=== PATIENT | male | born 1980 | race Caucasian/White ===

== ENCOUNTER 2016-05-22 09:49 | Emergency (ER) | payer OTHER ==
[2016-05-22 10:32] VITALS: BP 144/76
--- NOTE | 2016-05-22 10:39 | RAD ---
Indication: Right rib injury. The views of the right ribs demonstrates no fracture. IMPRESSION: No fracture of the right ribs is noted.
--- NOTE | 2016-05-22 11:17 | UC ---
Truncal Trauma HPI - HPI Summary HPI Summary: 36 year old male with complaints of right medial rib pain x 4 days. States he was "horsing around" with is older children and fell to ground with is son. He landed on his son with right ribs and they have been hurting ever since. Pain with sitting up , lying back, cough and poking at the tender area. Denies bruise. Denies chest pian, Denies difficulty breathing. - History Of Current Complaint Chief Complaint: UCUpperExtremity Stated Complaint: RIGHT RIB INJURY Time Seen by Provider: 05/22/16 11:08 Hx Obtained From: Patient Onset/Duration: Sudden Onset, Lasting Days - 4, Still Present Onset Of Pain: Immediate Severity Initially: Moderate Severity Currently: Mild - until moving and then moderate Pain Scale Used: 0-10 Numeric - 10 with movement Mechanism Of Injury: Blunt Trauma, Fall From A Standing Position Aggravating Factor(s): Movement Alleviating factor(s): Rest Associated Signs And Symptoms: Negative: SOB, Cough, Hematuria, Abdominal Pain, Fever, Nausea, Vomiting - Allergies/Home Medications Allergies/Adverse Reactions: Allergies Allergy/AdvReac Type Severity Reaction Status Date / Time Penicillins Allergy Anaphylatic Verified 05/22/16 10:11 Shock Sertraline [From Zoloft] Allergy Hives Verified 05/22/16 10:11 Home Medications: Home Medications Canagliflozin (NF) [Invokana (NF)] 300 mg PO DAILY 05/22/16 [History Confirmed 05/22/16] Glimepiride (NF) 4 mg PO BID 05/22/16 [History Confirmed 05/22/16] Ibuprofen [Advil] 800 mg PO DAILY PRN 05/22/16 [History Confirmed 05/22/16] Insulin GLARGINE(*) [Lantus(*)] 50 units SUBCUT Q24H 05/22/16 [History Confirmed 05/22/16] Ranitidine TAB (NF) [Zantac TAB (NF)] 150 mg PO BID 05/22/16 [History Confirmed 05/22/16] Simvastatin TAB(NF) [Zocor(NF)] 20 mg PO DAILY 05/22/16 [History Confirmed 05/22] Venlafaxine EXT RELEASE CAP* [Effexor Xr CAP*] 150 mg PO DAILY 05/22/16 [ History Confirmed 05/22/16] PMH/Surg Hx/FS Hx/Imm Hx Previously Healthy: Yes Endocrine History Of: Reports: Diabetes Cardiovascular History Of: Denies: Cardiac Disorders Respiratory History Of: Denies: Asthma - Surgical History Surgical History: Yes Surgery Procedure, Year, and Place: dental extraction - Family History Known Family History: Negative: Hypertension, Diabetes - Social History Occupation: Employed Full-time Lives: With Family Alcohol Use: None Substance Use Type: None Smoking Status (MU): Heavy Every Day Tobacco Smoker Type: Cigarettes Amount Used/How Often: 1 pack daily Cessation Counseling: Patient Advised to Stop - he is not interested in quiting Review of Systems Constitutional: Negative Skin: Negative Eyes: Negative ENT: Negative Respiratory: Negative Cardiovascular: Other - right rib pain Gastrointestinal: Negative Genitourinary: Negative Motor: Decreased ROM - due to acute pain of ribs Neurovascular: Negative Musculoskeletal: Arthralgia - right ribs Neurological: Negative Psychological: Negative All Other Systems Reviewed And Are Negative: Yes Physical Exam Triage Information Reviewed: Yes Appearance: Well-Nourished, Ill-Appearing - mildly, Pain Distress - mild - he is holding his lateral right ribs with left hand. able to walk and get up out of exam room chair without difficulty Vital Signs: Initial Vital Signs Temp 96.4 F 05/22/16 10:15 Pulse 87 05/22/16 10:15 Resp 16 05/22/16 10:15 BP 144/76 05/22/16 10:15 Pulse Ox 98 05/22/16 10:15 Vital Signs Reviewed: Yes Eyes: Positive: Conjunctiva Clear. Negative: Discharge ENT: Positive: Hearing grossly normal. Negative: Nasal congestion Neck: Positive: Supple, Nontender - no mid line cervical tenderness, No Lymphadenopathy Respiratory: Positive: Chest non-tender, Lungs clear, Normal breath sounds Cardiovascular: Positive: RRR, No Murmur Abdomen Description: Positive: Nontender, No Organomegaly, Soft. Negative: CVA Tenderness (R), CVA Tenderness (L) Musculoskeletal: Positive: Strength Intact - all 4 extremities, ROM Intact, No Edema - right ribs without redness, swelling or bruising. NO obvious defomity. Reproducable pain right lateral ribs 6 - 8 Neurological: Positive: Alert, Muscle Tone Normal Psychological: Positive: Age Appropriate Behavior - pleasant and cooperative Skin: Negative: rashes, breakdown Truncal Trauma Course/Dx - Course Course Of Treatment: xray of right ribs = no fracture - Differential Dx/Diagnosis Differential Diagnosis/HQI/PQRI: Chest Wall Contusion, Rib Fracture Provider Diagnoses: right rib contusion Discharge - Discharge Plan Condition: Stable Disposition: HOME Prescriptions: Ibuprofen TAB* [Motrin TAB* 600 MG] 600 mg PO Q8H #20 tab Patient Education Materials: Rib Contusion (ED), Ibuprofen (By mouth) Referrals: RAMA John [Primary Care Provider] - 2 Weeks
== END 2016-05-22 11:39 | disposition home or self-care (01) ==
LOC: UCCORT 09:49
DX: S30.1XXA Contusion of abdominal wall, initial encounter (principal); E11.9 Type 2 diabetes mellitus without complications; F17.210 Nicotine dependence, cigarettes, uncomplicated; W19.XXXA Unspecified fall, initial encounter; Y93.83 Activity, rough housing and horseplay; Y92.9 Unspecified place or not applicable; Z79.4 Long term (current) use of insulin; Z88.0 Allergy status to penicillin; Z88.8 Allergy status to other drugs, medicaments and biological substances
CPT/HCPCS: 99202; G0463

== ENCOUNTER 2016-11-06 12:11 | Emergency (ER) | payer OTHER ==
[2016-11-06 12:21] VITALS: BP 121/77
--- NOTE | 2016-11-06 12:38 | UC ---
Ear Complaint HPI - HPI Summary HPI Summary: 36 y/o PMHX DM type II presents to the urgent care c/o RT ear pain since this morning when he woke up. Pt states pain is 8/10, with mild swelling below the RT ear. Pt denies fever, SOB, cough, chest pain, n/v/d, ear discharge. Pt has not other complains - History of Current Complaint Chief Complaint: UCEar Stated Complaint: RIGHT EAR PAIN Time Seen by Provider: 11/06/16 12:36 Hx Obtained From: Patient Onset/Duration: Sudden Onset, Lasting Hours, Still Present Severity Initially: Mild Severity Currently: Moderate Pain Intensity: 8 Pain Scale Used: 0-10 Numeric Aggravating Factors: Nothing Alleviating Factors: Nothing Associated Signs/Symptoms: Positive: Swelling @ - below his RT ear - Allergies/Home Medications Allergies/Adverse Reactions: Allergies Allergy/AdvReac Type Severity Reaction Status Date / Time Penicillins Allergy Anaphylatic Verified 11/06/16 12:21 Shock Sertraline [From Zoloft] Allergy Hives Verified 11/06/16 12:21 Home Medications: Home Medications Bupropion XL* [Wellbutrin XL *] 150 mg PO DAILY 11/06/16 [History Confirmed ] Insulin Glargine [Basaglar Kwikpen] 46 unit SC BEDTIME 11/06/16 [History Confirmed 11/06/16] Mirtazapine TAB* [Remeron TAB*] 15 mg PO BEDTIME 11/06/16 [History Confirmed ] Pioglitazone HCl [Actos] 30 mg PO DAILY 11/06/16 [History Confirmed 11/06/16] PMH/Surg Hx/FS Hx/Imm Hx Previously Healthy: Yes Endocrine History: Diabetes, Dyslipidemia - Surgical History Surgical History: Yes Surgery Procedure, Year, and Place: dental extraction - Family History Known Family History: Positive: Diabetes Negative: Hypertension - Social History Occupation: Employed Full-time Lives: With Family Alcohol Use: None Substance Use Type: None Smoking Status (MU): Heavy Every Day Tobacco Smoker Type: Cigarettes Amount Used/How Often: 1 pack daily Review of Systems Constitutional: Negative Skin: Negative Eyes: Negative ENT: Ear Ache - RT ear Respiratory: Negative Cardiovascular: Negative Gastrointestinal: Negative Genitourinary: Negative Motor: Negative Neurovascular: Negative Musculoskeletal: Negative Neurological: Negative Psychological: Negative All Other Systems Reviewed And Are Negative: Yes Physical Exam Triage Information Reviewed: Yes Appearance: Well-Appearing, No Pain Distress, Well-Nourished Vital Signs: Initial Vital Signs Temp 97.2 F 11/06/16 12:18 Pulse 70 11/06/16 12:18 Resp 17 11/06/16 12:18 BP 121/77 11/06/16 12:18 Pulse Ox 99 11/06/16 12:18 Vital Signs Reviewed: Yes Eye Exam: Normal Eyes: Positive: Conjunctiva Clear - PERRLA, EOMI, fundi grossly normal ENT: Positive: Normal ENT inspection, Hearing grossly normal, Pharynx normal, TMs normal - LF earcanal and TM wnl. RT external ear canal with mild cerumen. TM with erythema, and no light relfex.. Negative: Nasal congestion, Nasal drainage Dental Exam: Normal Neck exam: Normal Neck: Positive: Supple, Nontender, Tenderness @ - RT cervical lymph node swollen and tender to palpation. Respiratory Exam: Normal Respiratory: Positive: Chest non-tender, Lungs clear, Normal breath sounds Cardiovascular Exam: Normal Cardiovascular: Positive: RRR, No Murmur, Pulses Normal, Brisk Capillary Refill Abdominal Exam: Normal Abdomen Description: Positive: Nontender, No Organomegaly, Soft. Negative: CVA Tenderness (R), CVA Tenderness (L) Bowel Sounds: Positive: Present Musculoskeletal Exam: Normal Musculoskeletal: Positive: Strength Intact, ROM Intact, No Edema Neurological Exam: Normal Psychological Exam: Normal Skin Exam: Normal Ear Complaint Course/Dx - Course Course Of Treatment: 36 y/o PMHX DM type II presents to the urgent care c/o RT ear pain since this morning when he woke up. Pt states pain is 8/10, with mild swelling below the RT ear. Pt denies fever, SOB, cough, chest pain, n/v/d, ear discharge. Hx obtained. PE abnormal findings: LF ear canal and TM wnl. RT external ear canal with mild cerumen. TM with erythema, and no light relfex. Dx RT otitis Media. Pt PMHX of DM type II, and allergic to Amoxicillin. Pt Rx Z-alma and Ibuprofen 800mg PO after meals for pain. Pt advised if not improvement or worsen to return to the urgent care or f/u with his PCP for further evaluation and treatment. Pt understood and agreed. Left clinic ambulating. - Differential Dx/Diagnosis Differential Diagnosis/HQI/PQRI: Mastoiditis, Otitis Externa, Otitis Media, Pharyngitis Provider Diagnoses: Right Otitis Media Discharge - Discharge Plan Condition: Stable Disposition: HOME Prescriptions: Azithromyxin ALMA (NF) [Z-Alma (Zithromax) 250 mg tabs #6] 2 tab PO .TODAY, THEN 1 DAILY #6 tab Ibuprofen TAB* [Motrin TAB* 800 MG] 800 mg PO Q6H PRN #20 tab PRN Reason: Pain Patient Education Materials: Otitis Media (ED) Referrals: RAMA John [Primary Care Provider] - If Needed Additional Instructions: Please take medications as instructed and finish the full course of treatment to avoid recurrent infection. Take ibuprofen after meals to alleviate pain. If you do not improve or if symptoms worsen after the course of antibiotics, you should either follow up with your PCP or return to the urgent care for further evaluation and treatment.
== END 2016-11-06 13:04 | disposition home or self-care (01) ==
LOC: UCCORT 12:11
DX: H66.91 Otitis media, unspecified, right ear (principal); H61.21 Impacted cerumen, right ear; E11.9 Type 2 diabetes mellitus without complications; Z79.4 Long term (current) use of insulin; E78.5 Hyperlipidemia, unspecified; Z88.0 Allergy status to penicillin; F17.210 Nicotine dependence, cigarettes, uncomplicated
CPT/HCPCS: 99212; G0463

== ENCOUNTER 2017-03-13 16:33 | Emergency (ER) | payer OTHER ==
[2017-03-13 16:44] VITALS: BP 155/93
--- NOTE | 2017-03-13 17:23 | UC ---
UC General HPI - HPI Summary HPI Summary: patient's had unprotected sexual intercourse with a man who knows he is HIV +. 2 days ago, since then they have also had sex. He would like to be put on PEP therapy. - History of Current Complaint Chief Complaint: UCSTDScreening Stated Complaint: PERSONAL Time Seen by Provider: 03/13/17 16:42 Hx Obtained From: Patient Onset/Duration: Sudden Onset Onset Severity: Mild Current Severity: None - Allergy/Home Medications Allergies/Adverse Reactions: Allergies Allergy/AdvReac Type Severity Reaction Status Date / Time Penicillins Allergy Anaphylatic Verified 03/13/17 16:45 Shock Sertraline [From Zoloft] Allergy Hives Verified 03/13/17 16:45 Home Medications: Home Medications Atorvastatin* [Lipitor*] 80 mg PO DAILY 03/13/17 [History Confirmed 03/13/17] Omeprazole [Prilosec] 20 mg PO DAILY 03/13/17 [History Confirmed 03/13/17] PMH/Surg Hx/FS Hx/Imm Hx Previously Healthy: Yes - Surgical History Surgical History: Yes Surgery Procedure, Year, and Place: dental extraction - Family History Known Family History: Positive: Diabetes Negative: Hypertension - Social History Alcohol Use: Rare Substance Use Type: None Smoking Status (MU): Heavy Every Day Tobacco Smoker Type: Cigarettes Amount Used/How Often: 1 pack daily Length of Time of Smoking/Using Tobacco: 29 YRS. Review of Systems Constitutional: Negative Skin: Negative Eyes: Negative ENT: Negative Respiratory: Negative Cardiovascular: Negative Gastrointestinal: Negative Genitourinary: Negative Motor: Negative Neurovascular: Negative Musculoskeletal: Negative Neurological: Negative Psychological: Negative Is Patient Immunocompromised?: No All Other Systems Reviewed And Are Negative: Yes Physical Exam Triage Information Reviewed: Yes Appearance: Well-Appearing, No Pain Distress, Well-Nourished, Other: - upset Vital Signs: Initial Vital Signs Temp 99.3 F 03/13/17 16:39 Pulse 117 03/13/17 16:39 Resp 16 03/13/17 16:39 BP 155/93 03/13/17 16:39 Pulse Ox 98 03/13/17 16:39 Vital Signs Reviewed: Yes Eye Exam: Normal ENT Exam: Normal Dental Exam: Normal Neck exam: Normal Respiratory Exam: Normal Cardiovascular Exam: Normal Abdominal Exam: Normal Bowel Sounds: Positive: Present Musculoskeletal Exam: Normal Neurological Exam: Normal Psychological Exam: Normal Skin Exam: Normal Course/Dx - Course Course Of Treatment: hx obtained, exam performed ,meds reviewed, blood work obtained, PEP prophylaxis started. Advised follow up with PCP when blood work returns. - Differential Dx - Multi-Symptom Provider Diagnoses: HIV exposure Discharge - Discharge Plan Condition: Stable Disposition: HOME Prescriptions: Emtricitabine [Emtriva] 200 mg PO DAILY #28 cap Raltegravir* [Isentress*] 400 mg PO BID #56 tab Tenofovir TAB* [Viread*] 300 mg PO DAILY #28 tab Patient Education Materials: HIV Transmission (ED), Postexposure Prophylaxis ( ED) Referrals: RAMA John [Primary Care Provider] - Additional Instructions: 1. take the medication as prescribed. 2. Blood work will be available by the end of the week. 3. I recommend follow up with your primary doctor for further blood work and medication monitoring
[2017-03-14 11:22] LABS: Hematocrit 48 % (42-52); Hemoglobin 16.4 g/dl (14.0-18.0); Mean Corpuscular HGB Conc 34 g/dl (31-36); Mean Corpuscular Hemoglobin 27 pg (27-31); Mean Corpuscular Volume 79 fL (80-94); Mean Platelet Volume 8 um3 (7.4-10.4); Red Blood Count 6.03 10^6/ul (4.0-5.4); Red Cell Distribution Width 13 % (10.5-15); White Blood Count 8.4 10^3/ul (3.5-10.8)
[2017-03-14 11:23] LABS: Add Diff/Slide Review? Slide Review Added; Comments Flag Yes
[2017-03-14 11:34] LABS: Albumin 4.4 g/dL (3.2-5.2); BUN/Creatinine Ratio 23.9 (8-20); Calcium 9.8 mg/dL (8.6-10.3); EGFR African American 170.7 (>60); EGFR Non-African American 132.8 (>60); Globulin 2.6 g/dL (2-4); Potassium 3.9 mmol/L (3.5-5.0); Total Bilirubin 0.5 mg/dL (0.2-1.0)
--- NOTE | 2017-03-15 07:36 | UC ---
Progress - Progress Note Progress Note: Please notify pt His alk phos was slightly elevated He should follow up with his primary to have this followed up
== END 2017-03-13 17:42 | disposition home or self-care (01) ==
LOC: UCCORT 16:33
DX: Z20.6 Contact with and (suspected) exposure to human immunodeficiency virus [HIV] (principal); Z88.0 Allergy status to penicillin; Z88.8 Allergy status to other drugs, medicaments and biological substances; F17.210 Nicotine dependence, cigarettes, uncomplicated
CPT/HCPCS: 36415; 80053; 85025; 86703; 86706; 86803; 87340; 99212; G0463

== ENCOUNTER 2017-06-07 15:25 | Emergency (ER) | payer OTHER | END 2017-06-07 19:20 | disposition left against medical advice (07) | LOC: UCCORT 15:25 | DX: J02.9 Acute pharyngitis, unspecified (principal); R05 Cough; H92.01 Otalgia, right ear; Z53.21 Procedure and treatment not carried out due to patient leaving prior to being seen by health care provider ==

== ENCOUNTER 2017-07-09 11:03 | Emergency (ER) | payer OTHER ==
[2017-07-09 11:20] VITALS: BP 127/74
--- NOTE | 2017-07-09 11:27 | UC ---
Throat Pain/Nasal James HPI - HPI Summary HPI Summary: nasal congestion / cough x 3 days + sore throat, right ear pain , no fever, no chills - History of Current Complaint Chief Complaint: UCRespiratory Stated Complaint: COUGH,CONGESTION Time Seen by Provider: 07/09/17 11:19 Hx Obtained From: Patient Onset/Duration: Gradual Onset, Lasting Days - 3, Still Present Severity: Moderate Pain Intensity: 7 Cough: Nonproductive Associated Signs & Symptoms: Positive: Nasal Discharge. Negative: Dysphagia, FB Sensation, Drooling, Wheezing, Hoarseness, Sinus Discomfort, Fever, Vomiting , Rash - Allergies/Home Medications Allergies/Adverse Reactions: Allergies Allergy/AdvReac Type Severity Reaction Status Date / Time Penicillins Allergy Anaphylatic Verified 07/09/17 11:15 Shock sertraline [From Zoloft] Allergy Hives Verified 07/09/17 11:15 Home Medications: Home Medications Atorvastatin* [Lipitor*] 80 mg PO DAILY 07/09/17 [History Confirmed 07/09/17] Fexofenadine (NF) [Aparna 180 (NF)] 180 mg PO DAILY 07/09/17 [History Confirmed 07/09/17] Pregabalin CAP(*) [Lyrica CAP(*)] 75 mg PO TID 07/09/17 [History Confirmed 07/09] lamoTRIgine TAB(*) [LaMICtal TAB(*)] 25 mg PO BID 07/09/17 [History Confirmed ] PMH/Surg Hx/FS Hx/Imm Hx GI/ History: Gastroesophageal Reflux Psychological History: Anxiety - Surgical History Surgical History: Yes Surgery Procedure, Year, and Place: dental extraction - Family History Known Family History: Positive: Diabetes Negative: Hypertension - Social History Alcohol Use: Rare Substance Use Type: None Smoking Status (MU): Heavy Every Day Tobacco Smoker Type: Cigarettes Amount Used/How Often: 1 pack daily Length of Time of Smoking/Using Tobacco: 29 YRS. Review of Systems Constitutional: Negative Skin: Negative Eyes: Negative ENT: Sore Throat, Nasal Discharge Respiratory: Cough Cardiovascular: Negative Is Patient Immunocompromised?: No All Other Systems Reviewed And Are Negative: Yes Physical Exam Triage Information Reviewed: Yes Appearance: Well-Appearing, No Pain Distress, Well-Nourished Vital Signs: Initial Vital Signs Temp 98.2 F 07/09/17 11:13 Pulse 84 07/09/17 11:13 Resp 18 07/09/17 11:13 BP 127/74 07/09/17 11:13 Pulse Ox 96 07/09/17 11:13 Vital Signs Reviewed: Yes Eyes: Positive: Conjunctiva Clear ENT: Positive: Normal ENT inspection, Hearing grossly normal, Pharynx normal, Nasal drainage, TMs normal. Negative: Pharyngeal erythema, TM bulging, TM dull , TM red Neck: Positive: Supple, Nontender, No Lymphadenopathy Respiratory: Positive: Chest non-tender, Lungs clear, Normal breath sounds Cardiovascular: Positive: RRR, No Murmur, Pulses Normal Skin Exam: Normal Throat Pain/Nasal Course/Dx - Differential Dx/Diagnosis Provider Diagnoses: uri Discharge - Discharge Plan Condition: Stable Disposition: HOME Patient Education Materials: Upper Respiratory Infection (ED) Referrals: RAMA John [Primary Care Provider] - If Needed
== END 2017-07-09 11:27 | disposition home or self-care (01) ==
LOC: UCCORT 11:03
DX: J06.9 Acute upper respiratory infection, unspecified (principal); Z88.0 Allergy status to penicillin; Z88.8 Allergy status to other drugs, medicaments and biological substances; F17.210 Nicotine dependence, cigarettes, uncomplicated
CPT/HCPCS: 99211; G0463

== ENCOUNTER 2017-07-28 16:03 | Emergency (ER) | payer OTHER ==
[2017-07-28 16:50] VITALS: BP 119/75
--- NOTE | 2017-07-28 16:55 | UC ---
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 He was in an argument and punched the refrigerator. Denies numbness or tingling. - History Of Current Complaint Chief Complaint: UCUpperExtremity Stated Complaint: LEFT HAND SWOLLEN Time Seen by Provider: 07/28/17 16:43 Hx Obtained From: Patient Onset/Duration: Sudden Onset Severity Initially: Severe Severity Currently: Severe Pain Intensity: 10 Pain Scale Used: 0-10 Numeric Character Of Pain: Sharp, Dull, Aching, Throbbing Aggravating Factor(s): Movement, Flexion Alleviating Factor(s): Ice - Allergies/Home Medications Allergies/Adverse Reactions: Allergies Allergy/AdvReac Type Severity Reaction Status Date / Time Penicillins Allergy Anaphylatic Verified 07/09/17 11:15 Shock sertraline [From Zoloft] Allergy Hives Verified 07/09/17 11:15 PMH/Surg Hx/FS Hx/Imm Hx Previously Healthy: Yes Endocrine History: Diabetes, Dyslipidemia GI/ History: Gastroesophageal Reflux Psychological History: Bipolar Disorder - Surgical History Surgical History: Yes Surgery Procedure, Year, and Place: dental extraction - Family History Known Family History: Positive: Diabetes Negative: Hypertension - Social History Lives: With Family Alcohol Use: Rare Substance Use Type: None Smoking Status (MU): Heavy Every Day Tobacco Smoker Type: Cigarettes Amount Used/How Often: 1 pack daily Length of Time of Smoking/Using Tobacco: 29 YRS. Review of Systems Constitutional: Negative Skin: Negative Respiratory: Negative Cardiovascular: Negative Neurovascular: Negative Musculoskeletal: Decreased ROM - Left hand, Edema - LEft hand, Other: - Pain 4th and 5th MCP left Neurological: Negative Psychological: Negative All Other Systems Reviewed And Are Negative: Yes Physical Exam Triage Information Reviewed: Yes Appearance: Well-Appearing, No Pain Distress, Well-Nourished Vital Signs: Initial Vital Signs Temp 98.3 F 07/28/17 16:44 Pulse 98 07/28/17 16:44 Resp 20 07/28/17 16:44 BP 119/75 07/28/17 16:44 Pulse Ox 97 07/28/17 16:44 Vital Signs Reviewed: Yes Neck: Positive: Supple, Nontender Respiratory: Positive: Lungs clear, Normal breath sounds, No respiratory distress Cardiovascular: Positive: RRR, No Murmur, Pulses Normal Musculoskeletal: Positive: ROM Limited @ - Left hand and 4th and 5th fingers due to pain, Edema @ - Left dorsal hand, Other: - Pain left dorsal hand overlying 4th and 5th MCP. Mild volar angular deformity of 5th MCP. Moderate edema and ecchymosis overlying this region Neurological: Positive: Alert, Other: - Sensations intact left hand and all fingers Psychological: Positive: Age Appropriate Behavior Skin: Negative: rashes, significant lesion(s) Hand/Wrist Course/Dx - Course Course Of Treatment: XR: FINDINGS: There is an angulated fracture of the distal diaphysis of the fifth metacarpal. with mild comminution.. There is also transverse, mildly angulated but otherwise. nondisplaced distal fourth metacarpal fracture. There are no other fractures. There is. associated soft tissue swelling. I spoke with Dr. Byrd who advised to splint and have pt f/u with him on Tuesday. - Differential Dx/Diagnosis Provider Diagnoses: Closed displaced fracture of left 5th MCP. Closed non- displaced fracture of left 4th MCP Discharge - Sign-Out/Discharge Documenting (check all that apply): Discharge - Discharge Plan Condition: Stable Disposition: HOME Patient Education Materials: Boxer Fracture (ED) Referrals: RAMA John [Primary Care Provider] - Benny Byrd MD [Medical Doctor] - 08/02/17 Additional Instructions: If you develop a fever, shortness of breath, chest pain, new or worsening symptoms - please call your PCP or go to the ED. 1) Dr. Byrd is in the [place] off on Tuesday - please call his office tomorrow and schedule an appointment for Tuesday. 2) Keep your splint clean, dry, and intact until your appointment - Billing Disposition and Condition Condition: STABLE Disposition: HOME
--- NOTE | 2017-07-28 17:12 | RAD ---
INDICATION: Traumatic fracture left fifth metacarpal COMPARISON: None TECHNIQUE: AP, lateral, and oblique views were obtained. FINDINGS: There is an angulated fracture of the distal diaphysis of the fifth metacarpal with mild comminution.. There is also transverse, mildly angulated but otherwise nondisplaced distal fourth metacarpal fracture. There are no other fractures. There is associated soft tissue swelling. IMPRESSION: FOURTH AND FIFTH METACARPAL FRACTURES DESCRIBED.
== END 2017-07-28 17:39 | disposition home or self-care (01) ==
LOC: UCCORT 16:03
DX: S62.307A Unspecified fracture of fifth metacarpal bone, left hand, initial encounter for closed fracture (principal); S62.305A Unspecified fracture of fourth metacarpal bone, left hand, initial encounter for closed fracture; F17.210 Nicotine dependence, cigarettes, uncomplicated; W22.8XXA Striking against or struck by other objects, initial encounter; Y92.9 Unspecified place or not applicable
CPT/HCPCS: 99211; G0463

== ENCOUNTER 2017-07-31 19:41 | Emergency (ER) | payer OTHER ==
[2017-07-31 19:52] VITALS: BP 134/85
--- NOTE | 2017-07-31 20:10 | UC ---
Hand/Wrist HPI - HPI Summary HPI Summary: PT WAS SEEN ON 07/28/17 AND SPLINTED FOR A FX LEFT HAND. HE RETURNS TODAY FOR A RECHECK. HE NOTES THAT HIS HAND HAS SWOLLEN MORE SINCE THE SPLINT WAS APPLIED AND NOW HIS HAND "FEELS CONSTRICTED". HE ALSO NOTES BRUISING TO HIS FINGER TIPS AND NUMBNESS TO THE TIP OF HIS MIDDLE FINGER ONLY. - History Of Current Complaint Stated Complaint: LEFT HAND RE-CK Time Seen by Provider: 07/31/17 19:51 Hx Obtained From: Patient Onset/Duration: Gradual Onset Pain Intensity: 8 Alleviating Factor(s): Nothing Associated Signs And Symptoms: Positive: Swelling, Bruising - Allergies/Home Medications Allergies/Adverse Reactions: Allergies Allergy/AdvReac Type Severity Reaction Status Date / Time Penicillins Allergy Anaphylatic Verified 07/31/17 19:52 Shock sertraline [From Zoloft] Allergy Hives Verified 07/31/17 19:52 PMH/Surg Hx/FS Hx/Imm Hx - Additional Past Medical History Additional PMH: MOOD DISORDER. FX l HAND 07/28/17 Endocrine History: Diabetes, Dyslipidemia - Surgical History Surgical History: Yes Surgery Procedure, Year, and Place: dental extraction - Family History Known Family History: Positive: Diabetes Negative: Hypertension - Social History Lives: With Family Alcohol Use: Rare Substance Use Type: None Smoking Status (MU): Heavy Every Day Tobacco Smoker Type: Cigarettes Amount Used/How Often: 1 pack daily Length of Time of Smoking/Using Tobacco: 29 YRS. Review of Systems Constitutional: Negative Skin: Negative Eyes: Negative ENT: Negative Respiratory: Negative Cardiovascular: Negative Gastrointestinal: Negative Genitourinary: Negative Motor: Negative Neurovascular: Negative Musculoskeletal: Other: - SWELLING AND BRUISING TO FINGER TIPS LEFT HAND Neurological: Negative Psychological: Negative Is Patient Immunocompromised?: No All Other Systems Reviewed And Are Negative: Yes Physical Exam Triage Information Reviewed: Yes Appearance: Well-Appearing Vital Signs: Initial Vital Signs Temp 98.2 F 07/31/17 19:49 Pulse 102 07/31/17 19:49 Resp 18 07/31/17 19:49 BP 134/85 07/31/17 19:49 Pulse Ox 97 07/31/17 19:49 Vital Signs Reviewed: Yes Eye Exam: Normal ENT: Positive: Normal ENT inspection Neck: Positive: Supple, Nontender, No Lymphadenopathy Respiratory: Positive: Lungs clear, Normal breath sounds Cardiovascular: Positive: RRR, No Murmur Abdomen Description: Positive: Nontender, No Organomegaly, Soft Bowel Sounds: Positive: Present Musculoskeletal: Positive: Other: - LUE: ulnar gutter splint is in place. tips of fingers with purple bruising plus thumb is mildly swollen. gross sensation to each finger tip is intact. cap refill to each finger tip is < 2 seconds. motion to thumb, index and middle fingers are in tact. 4th/5th digits immobile by splint. Procedures - Procedure Summary Procedure Summary: diane wraps removed but splint held in place. pt noted immediate resolution of the constricted feeling and numbness to tip of middle finger resolved. 2 new diane wraps applied. recheck prior to discharge, pt notes felling much more comfortable he has f/u with Dr byrd this tuesday. Hand/Wrist Course/Dx - Course Course Of Treatment: prior visit and xray reviewed. no signs of infection. no compartment syndrom. - Differential Dx/Diagnosis Provider Diagnoses: Recheck fx L hand. Splint adjustment Discharge - Sign-Out/Discharge Documenting (check all that apply): Discharge - Discharge Plan Condition: Stable Disposition: HOME Patient Education Materials: Hand Fracture (ED), Splint Care (ED) Referrals: RAMA John [Primary Care Provider] - If Needed Benny Byrd MD [Medical Doctor] - Additional Instructions: FOLLOW UP DR BYRD THIS TUESDAY SCHEDULED. - Billing Disposition and Condition Condition: STABLE Disposition: HOME
== END 2017-07-31 20:14 | disposition home or self-care (01) ==
LOC: UCCORT 19:41
DX: S62.92XD Unspecified fracture of left hand, subsequent encounter for fracture with routine healing (principal); X58.XXXD Exposure to other specified factors, subsequent encounter; F17.210 Nicotine dependence, cigarettes, uncomplicated; Z88.0 Allergy status to penicillin; Z88.8 Allergy status to other drugs, medicaments and biological substances
CPT/HCPCS: 26600; 99211; G0463

== ENCOUNTER 2017-08-05 08:05 | Day surgery (SDC) | payer OTHER ==
[~2017-08-05 08:05] MED LIST: Buffered Lidocaine 0.9% SYRIN* 5 ML/SYR SYRINGE INTRADERM ONE; Famotidine IV* 10 MG/ML 2 ML (20 mg) IV ONE; Metoclopramide IV* 5 MG/ML 2 ML VIAL IV SLOW PU ONE
[2017-08-05] MEDS ORDERED: Famotidine TAB* 20 MG ONE (08:06)
[2017-08-05] MEDS ORDERED: Clindamycin 900 MG IVPREMIX(* 900 MG/50 ML SDV IV ONE (08:06)
[2017-08-05] MEDS ORDERED: Metoclopramide IV* 5 MG/ML 2 ML VIAL ONE (08:06)
[2017-08-05] MEDS ORDERED: Bupivacaine 0.25% SDV* 30 ML ONE (10:26)
[2017-08-05] MEDS ORDERED: fentaNYL* 50 MCG/ML 2 ML VIAL (100 MCG VIAL) ONE ×2 (10:32→11:19)
[2017-08-05] MEDS ORDERED: HYDROcodone/ACETAMIN 5-325 MG* 1 TAB PO PRN (10:33)
[2017-08-05] MEDS ORDERED: PROCHLORPERAZINE INJ 5 MG/ML 2 ML VIAL IV PRN (10:33)
[2017-08-05] MEDS ORDERED: Naloxone* 0.4 MG/ML 1 ML VIAL IV PRN (10:33)
[2017-08-05] MEDS ORDERED: fentaNYL* 50 MCG/ML 2 ML VIAL (100 MCG VIAL) IV PRN (10:33)
[2017-08-05] MEDS ORDERED: oxyCODONE/Acetamin 5/325 MG* TAB PO PRN (10:33)
[2017-08-05] MEDS ORDERED: Propofol* 10 MG/ML 20 ML BTL IV PUSH ONE (10:37)
[2017-08-05] MEDS ORDERED: Lidocaine 2% PF * 5 ML VIAL ONE (10:37)
[2017-08-05] MEDS ORDERED: Phenylephrine IV* 40 MCG/ML 10 ML SYRINGE ONE (10:53)
[2017-08-05] MEDS ORDERED: Ketorolac INJ* 30 MG/ML 1 ML VIAL ONE (10:56)
[2017-08-05] MEDS ORDERED: EPHEDrine (Pressors)* 50 MG/ML VIAL ONE (11:01)
[2017-08-05] MEDS ORDERED: Ondansetron INJ* 2 MG/ML VIAL ONE (11:25)
[2017-08-05] MEDS ORDERED: HYDROcodone/ACETAMIN 5-325 MG* 1 TAB ONE (12:17)
[2017-08-05 12:27] VITALS: BP 124/80
--- NOTE | 2017-08-05 19:27 | OP ---
DATE OF OPERATION: 08/05/17 - [facility] DATE OF : 78 SURGEON: Benny Byrd MD SEAMLESS HOSIERY KNITTER: BHANU Michel ANESTHESIOLOGIST: Dr. Summers. ANESTHESIA: General. PRE-OP DIAGNOSIS: Left displaced fifth metacarpal neck fracture. POST-OP DIAGNOSIS: Left displaced fifth metacarpal neck fracture. OPERATIVE PROCEDURE: Closed reduction and percutaneous fixation of left fifth metacarpal neck fracture. INDICATIONS: Gagan is 37 years old. He has a displaced and rotated fifth metacarpal neck fracture. We talked about risks and benefits. He wants to proceed. ESTIMATED BLOOD LOSS: 1 mL. COMPLICATIONS: None. FINDINGS: As expected. DESCRIPTION OF PROCEDURE: Gagan seen in the preoperative holding area. The correct side, site, and procedure were identified. We came back to the operating room where a pre-scrub was performed and the arm was prepped and draped in the usual fashion. A time-out was performed. I exsanguinated the arm with the Esmarch and the tourniquet was inflated to 250 mmHg. I made a 4-5 mm incision with 15 blade and bluntly dissected down with a mosquito to the base of the fifth metacarpal. A larger K-wire was used to open up the cortical window on the ulnar aspect at the base of the fifth metacarpal. I then brought in a 5/64th inch K-wire and placed on the T-Handle Beni with the tip in. I placed into my cortical window in the base of the fifth metacarpal. This was advanced in antegrade fashion down to the fracture site. The fracture site was then closed reduced and the wire was advanced past the fracture and tapped into place with the mallet. Fluoroscopic imaging showed excellent alignment of the fracture. The pin was bent and clipped and dressed with Xeroform, 4x4s, sterile Webril and an ulnar-guided splint. Tourniquet was deflated. He was woken up and taken to recovery room in stable condition. [id number]/CPS #: [id number] MTDD
--- NOTE | 2017-08-10 10:42 | RAD ---
CPT II Codes: G9500 INDICATION: Fracture left fifth metacarpal TECHNIQUE: Intraoperative fluoroscopy was provided during percutaneous medullary pin fixation of fractured left fifth metacarpal. FINDINGS: 6 spot films depict placement of a percutaneous fixation pin spanning the medullary cavity of the fractured left fifth metacarpal. Fluoroscopy time: 27 seconds IMPRESSION: As above.
== END 2017-08-05 12:27 | disposition home or self-care (01) ==
LOC: OR 08:05
PROVIDERS: ATTEND Orthopaedic Surgery Hand Surgery
DX: S62.337A Displaced fracture of neck of fifth metacarpal bone, left hand, initial encounter for closed fracture (principal); E11.9 Type 2 diabetes mellitus without complications; Z79.4 Long term (current) use of insulin; E78.5 Hyperlipidemia, unspecified; M19.90 Unspecified osteoarthritis, unspecified site; F17.210 Nicotine dependence, cigarettes, uncomplicated; G47.33 Obstructive sleep apnea (adult) (pediatric); W22.8XXA Striking against or struck by other objects, initial encounter; Y92.9 Unspecified place or not applicable
CPT/HCPCS: 76000; A9270-GY; C1776; J1885; J2405; J2704; J2765; J3010

== ENCOUNTER 2017-09-15 13:15 | Emergency (ER) | payer OTHER ==
--- OUTSIDE RECORDS SUMMARY | 2017-09-15 13:31 | XMS REPORT ---
:1980 External Reference #:[id number] Author Organization [facility] Address [address] [address] Phone [phone] Care Team Providers Name Role Phone Joseph Nascimento RPA Primary Care Physician Unavailable Payers Type Date Identification Numbers Payment Provider Subscriber Commercial Policy Number: [id number] Jaya Hartman Group Number: [id number] [address] PayID: [id number] [place] [address] Problems Date Description Provider Status Onset: 09/06/2017 Mallet finger Benny Byrd MD Active Onset: 09/06/2017 Disp fx of nk of 4th [facility] bone, l hand, Benny Byrd MD Active 7thD Onset: 08/02/2017 Closed fracture of neck of metacarpal Benny Byrd MD Active bone Onset: 12/17/2015 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 Family History Date Family Member(s) Problem(s) Comments General Kidney Disease General Cancer General Diabetes Social History Type Date Description Comments Lives With Occupation Unemployed Occupation discharged from ETOH Use Occasionally consumes alcohol Recreational Drug Use Denies Drug Use Smoking Heavy tobacco smoker (more than 10 cigarettes/day) Exercise Type/Frequency Exercises rarely Allergies, Adverse Reactions, Alerts Date Description Reaction Status Severity Comments 12/17/2015 Penicillin active critical 08/02/2017 Zoloft Hives active Medications Medication Date Status Form Strength Qnty SIG Indications Ordering Provider Cephalexin 09/09/ Active Capsules 500mg 30cap take 1 S62.337D Benny 2017 s every 6 Byrd, hours as MD needed Glimepiride 00// Active Tablets 4mg 2 by mouth Unknown 0000 every day Aparna Allergy / Active Tablets 180mg 1 by mouth Unknown 0000 every day 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/ Active Tablets 150mg 1 by mouth Unknown 0000 twice a day Invokana / Active Tablets 100mg 1 by mouth Unknown 0000 every day before breakfast Basaglar Kwikpen / Active Solution 100Unit/M As Unknown 0000 Pen-Inject L directed Atorvastatin / Active Tablets 80mg 1 by mouth Unknown Calcium 0000 every day Hydrocodone-Aceta 08/16/ Hx Tablets 5-325mg 30tab 1 or 2 Benny minophen 2017 - s tabs by Rochelle 08/31/ ritu AMANDA 2017 every 6-8 hours as needed for pain Hydrocodone-Aceta 08/05/ Hx Tablets 5-325mg 30tab 1 or 2 Benny minophen 2017 - s tabs by Rochelle 08/09/ ritu AMANDA 2018 every 6-8 hours as needed for pain Lantus / Hx Solution 100Unit/M as Unknown 0000 - L directed 2017 Simvastatin / Hx Tablets 20mg 1 by mouth Unknown 0000 - every day 2017 Actos / Hx Tablets 30mg 1 by mouth Unknown 0000 - every day 2017 Cyclobenzaprine / Hx Tablets 10mg one by Unknown HCL 0000 - mouth 2018 times a day as needed spasm Vital Signs Date Vital Result Comment 09/09/2017 Height 71 inches 5'11" Weight 197.00 lb Heart Rate 84 /min Respiratory Rate 17 /min Body Temperature 98.4 F Pain Level 8 BMI (Body Mass Index) 27.5 kg/m2 09/06/2017 Height 71 inches 5'11" Weight 197.00 lb BP Systolic Sitting 118 mmHg BP Diastolic Sitting 68 mmHg Respiratory Rate 16 /min Pain Level 7 BMI (Body Mass Index) 27.5 kg/m2 08/16/2017 Height 71 inches 5'11" Weight 202.00 lb Heart Rate 70 /min BP Systolic Sitting 124 mmHg BP Diastolic Sitting 70 mmHg Respiratory Rate 16 /min Pain Level 8 BMI (Body Mass Index) 28.2 kg/m2 08/02/2017 Height 71 inches 5'11" Weight 210.00 lb Heart Rate 96 /min BP Systolic Sitting 106 mmHg BP Diastolic Sitting 90 mmHg Pain Level 8 left hand pain BMI (Body Mass Index) 29.3 kg/m2 Results Test Date Test Result H/L Range Note Laboratory test finding 08/05/2017 Point of Care Glucose 194 mg/dL High 70 -100 1 1 Bulb Grower: [id number] Procedures Date CPT Code Description Status 09/06/2017 51586 Short Arm Splint Application Completed 08/16/2017 92645 Rad Exam; Hand Comp Completed 08/16/2017 07081 Short Arm Cast Application Completed 08/05/2017 72027 FX Metacarpal Percutaneous Skeletal Fixation Completed 08/05/2017 93845 FX Metacarpal Percutaneous Skeletal Fixation Completed 08/02/2017 20408 Short Arm Splint Application Completed Encounters Type Date Location Provider CPT E/M Dx Office Visit 08/02/2017 [place] [address] S62.337A 8:00a Of [facility] AT [place] S62.337A Office Visit 12/17/2015 1:15p Neurosurgery Services Alan Mclean [address] [id number] [facility] Future Appointment(s):09/13/2017 9:00 am - Benny Byrd MD at [facility] AT Oiijzdvx68/12/2018 11:30 am - Benny Byrd MD at [facility] AT Edjbdaym89/18/2018 - Benny Byrd [id number] Disp fx of nk of 5th [facility] bone, l hand, 7thDNew Medication:Cephalexin 500 mgFollow up:Follow up: in [place] next Tuesday
--- OUTSIDE RECORDS SUMMARY | 2017-09-15 13:31 | XMS REPORT ---
:1980 External Reference #:[id number] Author Organization [facility] Address [address] [address] Phone [phone] Care Team Providers Name Role Phone Joseph Nascimento RPA Primary Care Physician Unavailable Payers Type Date Identification Numbers Payment Provider Subscriber Commercial Policy Number: [id number] Jaya Hartman Group Number: [id number] [address] PayID: [id number] [place] [address] Problems Date Description Provider Status Onset: 08/02/2017 Closed fracture of neck of [...] Form Strength Qnty SIG Indications Ordering Provider Glimepiride / Active Tablets 4mg 2 by mouth Unknown 0000 every day Aparna Allergy / Active Tablets 180mg 1 by mouth Unknown 0000 every day Acid Fruit Vendor / Active Tablets 150mg 1 by mouth Unknown 0000 twice a day Invokana / Active Tablets 100mg 1 by mouth Unknown 0000 every day before breakfast Basaglar Kwikpen 00/00/ Active Solution 100Unit/M As Unknown 0000 Pen-Inject L directed Atorvastatin / Active Tablets 80mg 1 by mouth Unknown Calcium 0000 every day Hydrocodone-Aceta 08/16/ Hx Tablets 5-325mg 30tab 1 or 2 Benny castellon 2018 - s tabs by Rochelle 08/31/ mouth 2018 every 6-8 hours as needed for pain Hydrocodone-Aceta 08/05/ Hx Tablets 5-325mg 30tab 1 or 2 Benny minryne 2018 - s tabs by Rochelle 08/09/ mouth 2017 every 6-8 hours as needed for [...] spasm Vital Signs Date Vital Result Comment 09/06/2017 Height 71 inches 5'11" Weight 197.00 [...] 194 mg/dL High 70 -100 1 1 Manager Practice: [id number] Procedures Date CPT Code Description Status 08/16/2017 74085 Rad Exam; Hand Comp Completed 08/16/2017 30650 Short Arm Cast Application Completed 08/05/2017 14598 FX Metacarpal Percutaneous Skeletal Fixation Completed 08/05/2017 64059 FX Metacarpal Percutaneous Skeletal Fixation Completed 08/02/2017 60381 Short Arm Splint Application Completed Encounters Type Date Location Provider CPT E/M Dx Office Visit 08/02/2017 [place] [address] S62.337A 8:00a Of [facility] AT [place] S62.337A Office Visit 12/17/2015 1:15p Neurosurgery Services Alan Mclean, [address] [id number] Of [facility] [place] Plan of Care Future Appointment(s):10/04/2017 11:30 am - Benny Byrd MD at [facility]
[2017-09-15 13:38] VITALS: BP 124/80
--- NOTE | 2017-09-15 14:39 | UC ---
Respiratory Complaint HPI - HPI Summary HPI Summary: Cough congestion and yellow-green drainage from nose Y for similar symptoms get a similar symptoms patient's felt fatigued. Patient is diabetic orally controlled his blood sugars have been in the 160s 170s has not had any nausea vomiting or abdominal pain does not complain of increased thirst increased hunger increased urination. Patient is a cigarette smoker and is exposed to additional environmental smoke at home - History of Current Complaint Chief Complaint: UCGeneralIllness Stated Complaint: COUGH/CONGESTION/HEADACHE Time Seen by Provider: 09/15/17 13:43 Hx Obtained From: Patient Onset/Duration: Sudden Onset, Lasting Days - 2, Still Present Timing: Constant Pain Intensity: 0 Pain Scale Used: 0-10 Numeric Character: Cough: Productive Aggravating Factors: Deep Breaths, Recumbent Position Associated Signs And Symptoms: Positive: Chills, URI, Nasal Congestion, Sinus Discomfort - Allergies/Home Medications Allergies/Adverse Reactions: Allergies Allergy/AdvReac Type Severity Reaction Status Date / Time Penicillins Allergy Severe Anaphylatic Verified 09/15/17 13:36 Shock sertraline [From Zoloft] Allergy Intermediate Hives Verified 09/15/17 13:36 Home Medications: Home Medications Pioglitazone TAB* [Actos TAB*] 30 mg PO DAILY 09/15/17 [History Confirmed ] PMH/Surg Hx/FS Hx/Imm Hx Previously Healthy: No Endocrine History: Diabetes GI/ History: Gastroesophageal Reflux - Surgical History Surgical History: Yes Surgery Procedure, Year, and Place: dental extraction. hand surgery - Family History Known Family History: Positive: Diabetes Negative: Hypertension - Social History Occupation: Disabled Lives: With Family Alcohol Use: Occasionally Substance Use Type: None Smoking Status (MU): Heavy Every Day Tobacco Smoker Type: Cigarettes Amount Used/How Often: 1 pack daily,smoked for more than 20 years Length of Time of Smoking/Using Tobacco: 29 YRS. Have You Smoked in the Last Year: No Cessation Counseling: Counseled 3+Min - 10 Min Review of Systems Constitutional: Chills, Fatigue Skin: Negative Eyes: Negative ENT: Ear Ache, Nasal Discharge, Sinus Congestion Respiratory: Cough Cardiovascular: Negative Gastrointestinal: Negative Genitourinary: Negative Motor: Negative Neurovascular: Negative Musculoskeletal: Negative Neurological: Headache Psychological: Negative Is Patient Immunocompromised?: No All Other Systems Reviewed And Are Negative: Yes Physical Exam Triage Information Reviewed: Yes Appearance: Well-Appearing, No Pain Distress, Well-Nourished, Ill-Appearing Vital Signs: Initial Vital Signs Temp 97.3 F 09/15/17 13:31 Pulse 104 09/15/17 13:31 Resp 16 09/15/17 13:31 BP 124/80 09/15/17 13:31 Pulse Ox 98 09/15/17 13:31 Vital Signs Reviewed: Yes Eye Exam: Normal Eyes: Positive: Conjunctiva Clear ENT Exam: Normal ENT: Positive: Normal ENT inspection, Hearing grossly normal, Pharynx normal, Nasal congestion, TMs normal, Uvula midline. Negative: Tonsillar swelling, Tonsillar exudate, Trismus, Muffled voice, Hoarse voice, Dental tenderness, Sinus tenderness Dental Exam: Normal Neck exam: Normal Neck: Positive: Supple, Nontender, No Lymphadenopathy Respiratory Exam: Normal Respiratory: Positive: Chest non-tender, Lungs clear, Normal breath sounds, No respiratory distress, No accessory muscle use Cardiovascular Exam: Normal Cardiovascular: Positive: RRR, No Murmur, Pulses Normal, Brisk Capillary Refill Musculoskeletal Exam: Normal Musculoskeletal: Positive: Strength Intact, ROM Intact, No Edema Neurological Exam: Normal Neurological: Positive: Alert, Muscle Tone Normal Psychological Exam: Normal Skin Exam: Normal UC Diagnostic Evaluation - Laboratory O2 Sat by Pulse Oximetry: 98 Diagnostic Studies Comment: no ketones in urine does have +2 blood in urine Respiratory Course/Dx - Course Course Of Treatment: Encourage smoking cessation, Zithromax albuterol increase fluids will back reports that he had/80 now that sheas opposed to on a very light follow with PCP about hyperglycemia - Differential Dx/Diagnosis Provider Diagnoses: nicotine dependant, acute bronchitis Discharge - Sign-Out/Discharge Documenting (check all that apply): Discharge/Admit/Transfer - Discharge Plan Condition: Stable Disposition: HOME Prescriptions: Albuterol HFA INHALER* [Ventolin HFA Inhaler*] 2 puff INH Q4H PRN #1 mdi PRN Reason: cough/bronchospasm Azithromycin TAB* [Zithromax TAB (Z-ALMA) 250 mg #6 tabs] 2 tab PO .TODAY, THEN 1 DAILY #1 alma Patient Education Materials: How to Stop Smoking (ED), Managing Diabetes During Sick Days (ED), Bronchospasm (ED) Referrals: RAMA John [Primary Care Provider] - If Needed - Billing Disposition and Condition Condition: STABLE Disposition: HOME
== END 2017-09-15 14:52 | disposition home or self-care (01) ==
LOC: UCCORT 13:15
DX: J20.9 Acute bronchitis, unspecified (principal); F17.210 Nicotine dependence, cigarettes, uncomplicated; E11.9 Type 2 diabetes mellitus without complications; K21.9 Gastro-esophageal reflux disease without esophagitis; R53.83 Other fatigue; Z88.0 Allergy status to penicillin; Z88.8 Allergy status to other drugs, medicaments and biological substances
CPT/HCPCS: 81003; 99212; G0463